=== PATIENT | male | born 1955 | race Asian ===

== ENCOUNTER 2016-10-30 11:41 | Emergency (ER) | payer MEDICAID, OTHER ==
[~2016-10-30] VITALS: Ht 165.1 cm; Wt 70.0 kg
[~2016-10-30 11:41] MED LIST: ASPI81TA42 PO; BENA10TA3 PO; LOVA20TA3 PO; QUET300XR PO
[2016-10-30] MEDS ORDERED: LURA40 PO (11:54)
[2016-10-30 13:42] VITALS: BP 121/67
== END 2016-10-30 13:52 | disposition home or self-care (01) ==
LOC: EMS 11:42
DX: H60.93 Unspecified otitis externa, bilateral (principal); F41.9 Anxiety disorder, unspecified; F32.9 Major depressive disorder, single episode, unspecified; E11.9 Type 2 diabetes mellitus without complications; E78.00 Pure hypercholesterolemia, unspecified; I10 Essential (primary) hypertension; G43.909 Migraine, unspecified, not intractable, without status migrainosus; F20.0 Paranoid schizophrenia; Z79.82 Long term (current) use of aspirin
CPT/HCPCS: 99283

== ENCOUNTER 2017-06-19 09:17 | Emergency (ER) | payer MEDICAID ==
[~2017-06-19] VITALS: Ht 165.1 cm; Wt 68.2 kg
[~2017-06-19 09:17] MED LIST changes: +LURA40 PO
[2017-06-19 11:03] VITALS: BP 137/77
[2017-06-19 11:04] LABS: INFLUENZA TYPE A POSITIVE FOR TYPE A (NEGATIVE); INFLUENZA TYPE B NEGATIVE FOR TYPE B (NEGATIVE)
[2017-06-19] MEDS ORDERED: ACETAMINOPHEN 500 MG TABLET PO ONE (11:15)
== END 2017-06-19 11:54 | disposition home or self-care (01) ==
LOC: EMS 09:18
DX: J11.1 Influenza due to unidentified influenza virus with other respiratory manifestations (principal); I10 Essential (primary) hypertension; R11.2 Nausea with vomiting, unspecified; M79.1 Myalgia; E78.00 Pure hypercholesterolemia, unspecified; G43.909 Migraine, unspecified, not intractable, without status migrainosus; Z79.82 Long term (current) use of aspirin
CPT/HCPCS: 87804; 99284

== ENCOUNTER 2018-01-16 12:08 | Emergency (ER) | payer MEDICAID, MEDICARE ==
[~2018-01-16] VITALS: Ht 165.1 cm; Wt 68.2 kg
[~2018-01-16 12:08] MED LIST changes: +BENA10TA11 PO; -BENA10TA3 PO
[2018-01-16] MEDS ORDERED: LEVO75 PO (12:16)
[2018-01-16] MEDS ORDERED: TRAZ-219 PO (12:16)
[2018-01-16] MEDS ORDERED: KETOROLAC TROMETHAMINE 30 MG/ML VIAL IM ONE (14:15)
[2018-01-16 15:38] VITALS: BP 102/68
== END 2018-01-16 15:38 | disposition home or self-care (01) ==
LOC: EMS 12:09
DX: G43.909 Migraine, unspecified, not intractable, without status migrainosus (principal); M54.2 Cervicalgia; M25.511 Pain in right shoulder; M25.512 Pain in left shoulder; F41.9 Anxiety disorder, unspecified; H93.19 Tinnitus, unspecified ear; F32.9 Major depressive disorder, single episode, unspecified; E78.00 Pure hypercholesterolemia, unspecified; I10 Essential (primary) hypertension; F20.0 Paranoid schizophrenia; E03.9 Hypothyroidism, unspecified; Z79.82 Long term (current) use of aspirin
CPT/HCPCS: 96372; 99283; J1885

== ENCOUNTER 2018-08-29 11:34 | Emergency (ER) | payer MEDICARE ==
[~2018-08-29] VITALS: Ht 165.1 cm; Wt 69.1 kg
[~2018-08-29 11:34] MED LIST changes: -BENA10TA11 PO; +BENA10TA12 PO; +LEVO75 PO; -LURA40 PO; +QUET300T5 PO; -QUET300XR PO; +TRAZ-219 PO
[2018-08-29 13:39] VITALS: BP 124/70
== END 2018-08-29 14:36 | disposition left against medical advice (07) ==
LOC: EMS 11:35
DX: R51 Headache (principal); M54.2 Cervicalgia; M25.511 Pain in right shoulder; G89.29 Other chronic pain; F41.9 Anxiety disorder, unspecified; F32.9 Major depressive disorder, single episode, unspecified; G43.909 Migraine, unspecified, not intractable, without status migrainosus; F20.9 Schizophrenia, unspecified; I10 Essential (primary) hypertension

== ENCOUNTER 2019-09-16 23:04 | Emergency (ER) | payer MEDICARE ==
[~2019-09-16] VITALS: Ht 165.1 cm; Wt 71.8 kg
[~2019-09-16 23:04] MED LIST changes: +ASPI81TA40 PO; -ASPI81TA42 PO; -BENA10TA12 PO; +BENA10TA77 PO; -TRAZ-219 PO; +TRAZ-252 PO
[2019-09-17 01:13] VITALS: BP 124/71
[2019-09-17] MEDS ORDERED: IBUPROFEN 600 MG TABLET PO ONE (01:30)
== END 2019-09-17 01:46 | disposition home or self-care (01) ==
LOC: EMS 23:05
DX: K08.89 Other specified disorders of teeth and supporting structures (principal); F41.9 Anxiety disorder, unspecified; F32.9 Major depressive disorder, single episode, unspecified; G43.909 Migraine, unspecified, not intractable, without status migrainosus; F20.9 Schizophrenia, unspecified; Z90.49 Acquired absence of other specified parts of digestive tract

== ENCOUNTER 2019-09-18 16:47 | Emergency (ER) | payer MEDICARE ==
[~2019-09-18] VITALS: Ht 165.1 cm; Wt 71.8 kg
[2019-09-18 16:52] VITALS: BP 140/93
== END 2019-09-18 18:08 | disposition home or self-care (01) ==
LOC: EMS 16:52
DX: K08.89 Other specified disorders of teeth and supporting structures (principal); F41.9 Anxiety disorder, unspecified; F32.9 Major depressive disorder, single episode, unspecified; E78.00 Pure hypercholesterolemia, unspecified; I10 Essential (primary) hypertension; G43.909 Migraine, unspecified, not intractable, without status migrainosus; F20.9 Schizophrenia, unspecified; F20.0 Paranoid schizophrenia; Z79.82 Long term (current) use of aspirin

== ENCOUNTER 2019-10-10 11:27 | Emergency (ER) | payer MEDICARE ==
[~2019-10-10] VITALS: Ht 165.1 cm; Wt 71.8 kg
[2019-10-10 12:43] VITALS: BP 106/78
== END 2019-10-10 12:44 | disposition home or self-care (01) ==
LOC: EMS 11:28
DX: K02.9 Dental caries, unspecified (principal); F41.9 Anxiety disorder, unspecified; F32.9 Major depressive disorder, single episode, unspecified; E78.00 Pure hypercholesterolemia, unspecified; G43.909 Migraine, unspecified, not intractable, without status migrainosus; F20.0 Paranoid schizophrenia; I10 Essential (primary) hypertension; Z79.82 Long term (current) use of aspirin

== ENCOUNTER 2019-12-27 09:51 | Emergency (ER) | payer MEDICARE ==
[~2019-12-27] VITALS: Ht 165.1 cm; Wt 70.5 kg
[2019-12-27 09:55] VITALS: BP 102/69
== END 2019-12-27 10:37 | disposition home or self-care (01) ==
LOC: EMS 09:55
DX: K02.9 Dental caries, unspecified (principal); F41.9 Anxiety disorder, unspecified; F32.9 Major depressive disorder, single episode, unspecified; I10 Essential (primary) hypertension; G43.909 Migraine, unspecified, not intractable, without status migrainosus; F20.9 Schizophrenia, unspecified; E78.00 Pure hypercholesterolemia, unspecified; Z79.82 Long term (current) use of aspirin
CPT/HCPCS: 99283; Z7502

== ENCOUNTER 2022-07-05 09:54 | Emergency (ER) | payer MEDICARE, OTHER ==
[~2022-07-05] VITALS: Ht 170.2 cm; Wt 68.2 kg
[2022-07-05 10:29] VITALS: BP 156/88
[2022-07-05 10:32] LABS: COVID AG,FIA SOURCE NASAL SWAB
[2022-07-05 10:51] LABS: INFLUENZA TYPE A NEGATIVE FOR TYPE A (NEGATIVE); INFLUENZA TYPE B NEGATIVE FOR TYPE B (NEGATIVE)
[2022-07-05 12:17] LABS: ANION GAP 3 mmol/L (8-16); CALCIUM, TOTAL 8.4 mg/dL (8.8-10.5); CARBON DIOXIDE 32 mmol/L (22-29); CHLORIDE 102 mmol/L (98-107); CREATININE 1.08 mg/dL (0.60-1.30); GLOMERULAR FILTR. RATE CALC > 60 mL/min (>60); GLUCOSE,RANDOM 122 mg/dL (70-110); POTASSIUM 3.9 mmol/L (3.5-5.1); SODIUM SERUM 137 mmol/L (136-145); UREA NITROGEN, BLOOD 9 mg/dL (7-18)
[2022-07-05 12:18] LABS: BASOPHILS % (AUTO) 0.3 % (0.0-2.0); EOSINOPHILS % (AUTO) 1.1 % (1.0-6.0); HEMATOCRIT 42.5 % (41-53); HEMOGLOBIN 14.2 g/dL (13.5-17.5); LYMPHOCYTES # (AUTO) 1.7 K/uL (1.0-4.8); MEAN CORPUSCULAR HEMOGLOBIN 31.2 pg (26.0-34.0); MEAN CORPUSCULAR HGB CONC 33.4 G/dL (31.0-37.0); MEAN CORPUSCULAR VOLUME 93 fL (80-100); MONOCYTES # (AUTO) 0.7 K/uL (0.1-1.0); MONOCYTES % (AUTO) 12.1 % (2.0-9.0); NEUTROPHILS # (AUTO) 3.1 K/uL (1.8-7.7); NEUTROPHILS % (AUTO) 56.5 % (40.0-70.0); PLATELET COUNT (AUTO) 169 K/uL (150-450); RED BLOOD CELL COUNT(AUTO) 4.55 MIL/uL (4.50-5.90); RED CELL DISTRIBUTION WIDTH 13.8 % (11.5-14.5)
[2022-07-05 12:23] LABS: ALANINE AMINOTRANSFERASE 36 U/L (12-78); ALBUMIN 3.9 g/dL (3.4-5.0); ALKALINE PHOSPHATASE 75 U/L (46-116); ASPARTATE AMINOTRANSFERASE 31 U/L (15-37); BILIRUBIN,TOTAL 0.2 mg/dL (0.1-1.0); TOTAL PROTEIN, SERUM 8.4 g/dL (6.4-8.2)
[2022-07-05] MEDS ORDERED: ACETAMINOPHEN 500 MG TABLET PO ONE (13:00)
== END 2022-07-05 13:53 | disposition home or self-care (01) ==
LOC: EMS 10:02
DX: U07.1 COVID-19 (principal); F41.9 Anxiety disorder, unspecified; F32.A Depression, unspecified; E11.9 Type 2 diabetes mellitus without complications; E78.00 Pure hypercholesterolemia, unspecified; I10 Essential (primary) hypertension; G43.909 Migraine, unspecified, not intractable, without status migrainosus; F20.0 Paranoid schizophrenia; Z90.49 Acquired absence of other specified parts of digestive tract; Z20.822 Contact with and (suspected) exposure to COVID-19
CPT/HCPCS: 80053; 85025; 87430; 87804; 99283

== ENCOUNTER 2022-10-27 09:41 | Emergency (ER) | payer OTHER ==
[~2022-10-27] VITALS: Ht 165.1 cm; Wt 75.0 kg
[2022-10-27] MEDS ORDERED: MIRT-92 PO (11:39)
[2022-10-27] MEDS ORDERED: IBUP-2070 PO (11:39)
[2022-10-27] MEDS ORDERED: QUET300T19 PO (11:39)
[2022-10-27] MEDS ORDERED: TRIA15CR49 TP (11:39)
[2022-10-27] MEDS ORDERED: BREX2TAB PO (11:39)
[2022-10-27] MEDS ORDERED: BENA10TA76 PO (11:39)
[2022-10-27] MEDS ORDERED: METF-1211 PO (11:39)
[2022-10-27] MEDS ORDERED: LEVO25TA9 PO (11:39)
[2022-10-27] MEDS ORDERED: ACETAMINOPHEN 500 MG TABLET PO ONE (11:45)
[2022-10-27] MEDS ORDERED: KETOROLAC TROMETHAMINE 60 MG/2 ML VIAL IM ONE (11:45)
[2022-10-27] MEDS ORDERED: BACLOFEN 10 MG TABLET PO ONE (11:45)
[2022-10-27 12:00] VITALS: BP 122/83
[2022-10-27] MEDS ORDERED: IBUP-1554 PO (12:11)
[2022-10-27] MEDS ORDERED: BACL10TA PO (12:11)
== END 2022-10-27 12:27 | disposition home or self-care (01) ==
LOC: EMS 09:43
DX: M54.42 Lumbago with sciatica, left side (principal); F41.9 Anxiety disorder, unspecified; F32.A Depression, unspecified; E11.9 Type 2 diabetes mellitus without complications; E78.00 Pure hypercholesterolemia, unspecified; I10 Essential (primary) hypertension; G43.909 Migraine, unspecified, not intractable, without status migrainosus; F20.9 Schizophrenia, unspecified; Z79.84 Long term (current) use of oral hypoglycemic drugs
CPT/HCPCS: 99283; 96372; J1885

== ENCOUNTER 2024-10-19 07:27 | Emergency (ER) | payer MEDICARE, OTHER ==
[~2024-10-19] VITALS: Ht 162.6 cm; Wt 68.2 kg
[~2024-10-19 07:27] MED LIST changes: -ASPI81TA40 PO; +BACL10TA PO; +BENA10TA76 PO; -BENA10TA77 PO; +BREX2TAB PO; +IBUP-1554 PO; +IBUP-2070 PO; +LEVO25TA9 PO; -LEVO75 PO; +METF-1211 PO; +MIRT-92 PO; +QUET300T19 PO; -QUET300T5 PO; -TRAZ-252 PO; +TRIA15CR49 TP
[2024-10-19 07:41] VITALS: TEMP 98.1
[2024-10-19] MEDS: methocarbamoL 500 MG TABLET PO ONE (08:22)
[2024-10-19] MEDS: ACETAMINOPHEN 500 MG TABLET PO ONE (08:23)
[2024-10-19] MEDS: LIDOCAINE 5% TRANSDERMAL PATCH TD ONE (08:24)
[2024-10-19] MEDS: KETOROLAC TROMETHAMINE 30 MG/ML VIAL IM ONE (08:25)
[2024-10-19] MEDS ORDERED: BACL10TA PO (10:06)
[2024-10-19 10:13] VITALS: BP 121/69; PULSE 75; RESP 18; O2SAT 97
== END 2024-10-19 10:14 | disposition home or self-care (01) ==
LOC: EMS 07:27
DX: M25.552 Pain in left hip (principal); F32.A Depression, unspecified; E11.9 Type 2 diabetes mellitus without complications; E78.00 Pure hypercholesterolemia, unspecified; I10 Essential (primary) hypertension; F20.0 Paranoid schizophrenia; G43.909 Migraine, unspecified, not intractable, without status migrainosus; Z90.49 Acquired absence of other specified parts of digestive tract; Z79.899 Other long term (current) drug therapy
CPT/HCPCS: 99284; 73503; 96372; J1885; 99283